=== PATIENT | male | born 2000 | race Caucasian/White ===

== ENCOUNTER 2021-11-24 04:40 | Emergency (ER) | payer OTHER ==
[2021-11-24] MEDS ORDERED: ULTRAM50 MG PO (04:58)
[2021-11-24] MEDS ORDERED: AMOXICILLIN500 M1 PO (04:58)
== END 2021-11-24 05:15 | disposition home or self-care (01) ==
LOC: ER1 04:40
DX: K02.9 Dental caries, unspecified (principal)
CPT/HCPCS: 99282